=== PATIENT | female | born 1990 | race Caucasian/White ===

== ENCOUNTER 2023-02-08 09:07 | Inpatient (IN) ==
[2023-02-08] MEDS ORDERED: Buffered Lidocaine 1% SYRIN 1 ml INTRADERM ONE (09:28)
[2023-02-08] MEDS ORDERED: Promethazine INJ(RESTRICTED) 25 MG/ML 1 ml VIAL IV PRN (09:28)
[2023-02-08] MEDS ORDERED: Lactated Ringers 1000 ml BAG 1,000 ML IV ONE (09:28)
[2023-02-08] MEDS ORDERED: Nalbuphine 10 MG/ML 1 ML VIAL IV PRN (09:28)
[2023-02-08] MEDS ORDERED: Lactated Ringers 1000 ml BAG 1,000 ML IV SCH (10:00)
[2023-02-08 10:22] LABS: Hematocrit 39.3 % (35-45); Hemoglobin 13.6 g/dL (11.5-14.3); Mean Corpuscular Hemoglobin 33.1 pg (27-33); Mean Corpuscular Hgb Conc 34.7 g/dL (31-36); Mean Corpuscular Volume 95.4 fL (80-97); Mean Platelet Volume 11.5 fL (7.5-11.2); Platelet Count 130 10^3/uL (150-450); Red Blood Count 4.11 10^6/uL (3.63-4.92); Red Cell Distribution Width 13.9 % (12-17); White Blood Count 5.1 10^3/uL (3.8-11.8)
[2023-02-08 10:59] LABS: Albumin 3.1 g/dL (3.2-5.2); Calcium 8.5 mg/dL (8.6-10.3); Potassium 4.6 mmol/L (3.5-5.0); Total Bilirubin 0.5 mg/dL (0.2-1.0)
[2023-02-08 11:05] LABS: Albumin/Globulin Ratio 1.6 (1-3); Creatinine, Serum 0.91 mg/dL (0.51-0.95); Globulin 1.9 g/dL (2-4); Uric Acid 5.3 mg/dL (2.3-6.6); eGFR CKD-EPI 85.4 (>60)
[2023-02-08 11:13] LABS: ABS Lymphocytes 0.9 10^3/uL (1.0-4.8); ABS Monocytes 0.6 10^3/uL (0.0-0.9); ABS Neutrophils 3.5 10^3/uL (1.5-7.6); ABS Nucleated RBC 0.01 10^3/ul; Eosinophil % 0.4 %; Lymphocyte % 18.1 %; Nucleated Red Blood Cells % 0.1 /100 WBC (0.0-0.4)
[2023-02-08 11:25] LABS: Urine TP Concentration 19 mg/dL
[2023-02-08] MEDS ORDERED: Penicillin G Potassium IV 5,000,000 UNITS in NS 0.9% 100 ml BAG 100 ML IVPB ONE (12:13)
[2023-02-08] MEDS ORDERED: Calcium Gluconate 1 GM/10 ML VIAL (in Pyxis) IV PUSH PRN (12:14)
[2023-02-08] MEDS ORDERED: Magnesium Sulfate OB PREMIX 4 GM/100 ML BAG IV ONE (12:15)
[2023-02-08 12:34] LABS: Urine Benzodiazepine Screen None Detected (None Detect); Urine Cannabinoids Screen None Detected (None Detect); Urine Opiates Screen None Detected (None Detect)
[2023-02-08] MEDS ORDERED: Magnesium Sulfate OB PREMIX 40 GM/1,000 ML BAG IVPB SCH (13:00)
[2023-02-08] MEDS: Oxytocin in LR 20,000 MILLI.UNIT/1,000 ML BAG IV SCH ×3 (13:10→23:30)
[2023-02-08] MEDS ORDERED: Labetalol IV 5 MG/ML 20 ml VIAL IV PUSH ONE (14:35)
[2023-02-08 17:02] LABS: Albumin 3.3 g/dL (3.2-5.2); Albumin/Globulin Ratio 1.4 (1-3); Calcium 8.5 mg/dL (8.6-10.3); Creatinine, Serum 0.92 mg/dL (0.51-0.95); Globulin 2.4 g/dL (2-4); Total Bilirubin 0.5 mg/dL (0.2-1.0); Total Protein 5.7 g/dL (6.4-8.9); eGFR CKD-EPI 84.3 (>60)
[2023-02-08] MEDS: Penicillin G Potassium IV 3,000,000 UNITS in NS 0.9% 100 ml BAG 100 ML IVPB SCH ×2 (17:08→21:21)
[2023-02-08 17:17] LABS: ABS Lymphocytes 0.9 10^3/uL (1.0-4.8); ABS Monocytes 0.6 10^3/uL (0.0-0.9); ABS Nucleated RBC 0.01 10^3/ul; Eosinophil % 0.2 %; Hematocrit 42.7 % (35-45); Hemoglobin 14.4 g/dL (11.5-14.3); Lymphocyte % 16.9 %; Mean Corpuscular Hemoglobin 32.5 pg (27-33); Mean Corpuscular Hgb Conc 33.9 g/dL (31-36); Mean Corpuscular Volume 95.9 fL (80-97); Mean Platelet Volume 11.3 fL (7.5-11.2); Nucleated Red Blood Cells % 0.1 /100 WBC (0.0-0.4); Platelet Count 139 10^3/uL (150-450); Red Blood Count 4.45 10^6/uL (3.63-4.92); Red Cell Distribution Width 13.9 % (12-17); White Blood Count 5.6 10^3/uL (3.8-11.8)
[2023-02-08] MEDS ORDERED: fentaNYL 100 mcg/2 ml 50 MCG/ML VIAL ONE ×2 (19:30→19:34)
[2023-02-08] MEDS ORDERED: Carboprost Tromethamine 250 mcg 1 ml VIAL ONE (19:42)
[2023-02-08 22:14] LABS: ABS Lymphocytes 0.4 10^3/uL (1.0-4.8); ABS Monocytes 0.9 10^3/uL (0.0-0.9); ABS Neutrophils 9.7 10^3/uL (1.5-7.6); ABS Nucleated RBC 0.01 10^3/ul; Eosinophil % 0.1 %; Hematocrit 17.6 % (35-45); Hemoglobin 5.7 g/dL (11.5-14.3); Lymphocyte % 3.8 %; Mean Corpuscular Hemoglobin 31.8 pg (27-33); Mean Corpuscular Hgb Conc 32.2 g/dL (31-36); Mean Corpuscular Volume 98.7 fL (80-97); Nucleated Red Blood Cells % 0.1 /100 WBC (0.0-0.4); Platelet Count 70 10^3/uL (150-450); Red Blood Count 1.78 10^6/uL (3.63-4.92); Red Cell Distribution Width 14.6 % (12-17); White Blood Count 11.1 10^3/uL (3.8-11.8)
[2023-02-08 22:34] LABS: Activated Partial Thrombo Time 84.5 seconds (26.0-38.0); INR 2.12 (0.88-1.18)
[2023-02-08 22:36] LABS: ABS Lymphocytes 0.7 10^3/uL (1.0-4.8); ABS Monocytes 1.3 10^3/uL (0.0-0.9); ABS Neutrophils 15.2 10^3/uL (1.5-7.6); ABS Nucleated RBC 0.01 10^3/ul; Hematocrit 27.1 % (35-45); Hemoglobin 9.2 g/dL (11.5-14.3); Lymphocyte % 4.1 %; Mean Corpuscular Hemoglobin 31.5 pg (27-33); Mean Corpuscular Volume 92.6 fL (80-97); Mean Platelet Volume 10.1 fL (7.5-11.2); Nucleated Red Blood Cells % 0.1 /100 WBC (0.0-0.4); Platelet Count 117 10^3/uL (150-450); Red Blood Count 2.93 10^6/uL (3.63-4.92); Red Cell Distribution Width 14.1 % (12-17); White Blood Count 17.2 10^3/uL (3.8-11.8)
[2023-02-08 22:37] LABS: Platelet Count 120 10^3/ul (150-450)
[2023-02-08 22:47] LABS: Platelet Count 70 10^3/ul (150-450)
[2023-02-08 22:48] LABS: Schistocytes ABSENT
[2023-02-08 22:52] LABS: Activated Partial Thrombo Time 30.1 seconds (26.0-38.0); INR 1.03 (0.88-1.18)
[2023-02-08 23:04] LABS: Schistocytes ABSENT
[2023-02-09] MEDS: ceFOXitin 2 GM IVPREMIX 2 GM/50 ML BAG IVPB SCH ×3 (02:57→17:55)
[2023-02-09 04:10] LABS: ABS Lymphocytes 0.7 10^3/uL (1.0-4.8); ABS Neutrophils 9.4 10^3/uL (1.5-7.6); Hematocrit 23.1 % (35-45); Hemoglobin 8.2 g/dL (11.5-14.3); Lymphocyte % 6.6 %; Mean Corpuscular Hemoglobin 32.7 pg (27-33); Mean Corpuscular Hgb Conc 35.4 g/dL (31-36); Mean Corpuscular Volume 92.3 fL (80-97); Mean Platelet Volume 10.4 fL (7.5-11.2); Platelet Count 77 10^3/ul (150-450); Platelet Count 81 10^3/uL (150-450); Red Cell Distribution Width 14.5 % (12-17); White Blood Count 11.2 10^3/uL (3.8-11.8)
[2023-02-09 04:18] LABS: Activated Partial Thrombo Time 28.5 seconds (26.0-38.0); INR 0.99 (0.88-1.18)
[2023-02-09 04:34] LABS: Schistocytes ABSENT
[2023-02-09] MEDS: Oxytocin in LR 20,000 MILLI.UNIT/1,000 ML BAG IV SCH (05:59)
[2023-02-09 08:36] LABS: Activated Partial Thrombo Time 26.8 seconds (26.0-38.0); INR 0.98 (0.88-1.18)
[2023-02-09 08:47] LABS: Creatinine, Serum 0.81 mg/dL (0.51-0.95); Potassium 4.3 mmol/L (3.5-5.0); eGFR CKD-EPI 98.2 (>60)
[2023-02-09 08:52] LABS: ABS Lymphocytes 0.9 10^3/uL (1.0-4.8); ABS Monocytes 1.1 10^3/uL (0.0-0.9); Hematocrit 22.2 % (35-45); Hemoglobin 7.9 g/dL (11.5-14.3); Mean Corpuscular Hemoglobin 32.4 pg (27-33); Mean Corpuscular Hgb Conc 35.6 g/dL (31-36); Mean Corpuscular Volume 91.1 fL (80-97); Mean Platelet Volume 10.5 fL (7.5-11.2); Platelet Count 78 10^3/uL (150-450); Red Blood Count 2.43 10^6/uL (3.63-4.92); Red Cell Distribution Width 14.2 % (12-17)
[2023-02-09 09:16] LABS: Calcium 6.2 mg/dL (8.6-10.3)
[2023-02-09 09:53] LABS: Albumin 2.2 g/dL (3.2-5.2)
[2023-02-09] MEDS ORDERED: Calcium Gluconate 2 GM in NS 0.9% 100 ml BAG 100 ML IV ONE ×2 (10:11→17:55)
[2023-02-09 13:54] LABS: Urine Osmo 123 mOsm/kg (150-1150)
[2023-02-09 13:57] LABS: ABS Lymphocytes 1.1 10^3/uL (1.0-4.8); ABS Neutrophils 5.9 10^3/uL (1.5-7.6); ABS Nucleated RBC 0.01 10^3/ul; Hematocrit 23.4 % (35-45); Hemoglobin 8.5 g/dL (11.5-14.3); Mean Corpuscular Hemoglobin 32.9 pg (27-33); Mean Corpuscular Hgb Conc 36.2 g/dL (31-36); Mean Corpuscular Volume 90.8 fL (80-97); Mean Platelet Volume 10.3 fL (7.5-11.2); Nucleated Red Blood Cells % 0.2 /100 WBC (0.0-0.4); Platelet Count 73 10^3/uL (150-450); Red Blood Count 2.58 10^6/uL (3.63-4.92); Red Cell Distribution Width 14.3 % (12-17)
[2023-02-09 14:10] LABS: Albumin 2.3 g/dL (3.2-5.2); Albumin/Globulin Ratio 1.6 (1-3); Calcium 6.9 mg/dL (8.6-10.3); Creatinine, Serum 0.81 mg/dL (0.51-0.95); Globulin 1.4 g/dL (2-4); Magnesium 3.2 mg/dL (1.9-2.7); Phosphorus 2.9 mg/dL (2.5-5.0); Potassium 4.4 mmol/L (3.5-5.0); Total Bilirubin 0.6 mg/dL (0.2-1.0); Total Protein 3.7 g/dL (6.4-8.9); eGFR CKD-EPI 98.2 (>60)
[2023-02-09 14:35] LABS: Osmolality Serum 250 mOsm/kg (275-295)
[2023-02-09 17:37] LABS: Activated Partial Thrombo Time 25.7 seconds (26.0-38.0); INR 0.96 (0.88-1.18)
[2023-02-09 19:51] LABS: ABS Lymphocytes 1.2 10^3/uL (1.0-4.8); ABS Monocytes 0.9 10^3/uL (0.0-0.9); ABS Neutrophils 4.8 10^3/uL (1.5-7.6); ABS Nucleated RBC 0.01 10^3/ul; Eosinophil % 0.2 %; Hematocrit 21.7 % (35-45); Hemoglobin 7.6 g/dL (11.5-14.3); Lymphocyte % 17.4 %; Mean Corpuscular Hemoglobin 32.4 pg (27-33); Mean Corpuscular Hgb Conc 35.2 g/dL (31-36); Mean Corpuscular Volume 91.8 fL (80-97); Mean Platelet Volume 9.9 fL (7.5-11.2); Nucleated Red Blood Cells % 0.1 /100 WBC (0.0-0.4); Platelet Count 70 10^3/uL (150-450); Red Blood Count 2.36 10^6/uL (3.63-4.92); Red Cell Distribution Width 14.6 % (12-17); White Blood Count 6.9 10^3/uL (3.8-11.8)
[2023-02-09 19:53] LABS: Activated Partial Thrombo Time 25.1 seconds (26.0-38.0); INR 0.95 (0.88-1.18)
[2023-02-09 20:36] LABS: Albumin 2.2 g/dL (3.2-5.2); Albumin/Globulin Ratio 1.8 (1-3); Calcium 7.2 mg/dL (8.6-10.3); Creatinine, Serum 0.9 mg/dL (0.51-0.95); Globulin 1.2 g/dL (2-4); Potassium 4.2 mmol/L (3.5-5.0); Total Bilirubin 0.3 mg/dL (0.2-1.0); Total Protein 3.4 g/dL (6.4-8.9); eGFR CKD-EPI 86.6 (>60)
[2023-02-10 01:40] LABS: Activated Partial Thrombo Time 25.6 seconds (26.0-38.0); INR 0.95 (0.88-1.18)
[2023-02-10] MEDS: ceFOXitin 2 GM IVPREMIX 2 GM/50 ML BAG IVPB SCH (04:33)
[2023-02-10 07:41] LABS: Hematocrit 20.7 % (35-45); Hemoglobin 7.5 g/dL (11.5-14.3); Mean Corpuscular Volume 91.8 fL (80-97); Mean Platelet Volume 9.6 fL (7.5-11.2); Platelet Count 76 10^3/uL (150-450); Red Blood Count 2.26 10^6/uL (3.63-4.92); Red Cell Distribution Width 14.7 % (12-17)
[2023-02-10 07:52] LABS: Albumin 2.2 g/dL (3.2-5.2); Albumin/Globulin Ratio 1.5 (1-3); Calcium 7.5 mg/dL (8.6-10.3); Creatinine, Serum 0.89 mg/dL (0.51-0.95); Globulin 1.5 g/dL (2-4); Magnesium 1.6 mg/dL (1.9-2.7); Potassium 4.3 mmol/L (3.5-5.0); Total Bilirubin 0.3 mg/dL (0.2-1.0); Total Protein 3.7 g/dL (6.4-8.9); eGFR CKD-EPI 87.7 (>60)
[2023-02-10 10:49] LABS: Hematocrit 21.9 % (35-45); Hemoglobin 7.7 g/dL (11.5-14.3); Mean Corpuscular Hemoglobin 32.1 pg (27-33); Mean Corpuscular Hgb Conc 35.3 g/dL (31-36); Mean Platelet Volume 9.5 fL (7.5-11.2); Platelet Count 82 10^3/uL (150-450); Red Cell Distribution Width 15.1 % (12-17); White Blood Count 7.5 10^3/uL (3.8-11.8)
[2023-02-10] MEDS ORDERED: Dibucaine 1% OINT 28.35 GM TUBE PR PRN (11:55)
[2023-02-10] MEDS ORDERED: Witch Hazel PAD JAR TOPICAL PRN (11:55)
[2023-02-10] MEDS ORDERED: Glycerin ADULT 2.4 gm SUPP PR PRN (11:55)
[2023-02-10] MEDS ORDERED: Lactated Ringers 1000 ml BAG 1,000 ML IV SCH (12:00)
[2023-02-11 07:29] LABS: ABS Monocytes 0.6 10^3/uL (0.0-0.9); ABS Neutrophils 4.6 10^3/uL (1.5-7.6); ABS Nucleated RBC 0.01 10^3/ul; Eosinophil % 0.8 %; Hematocrit 20.5 % (35-45); Lymphocyte % 16.2 %; Mean Corpuscular Hemoglobin 32.4 pg (27-33); Mean Corpuscular Hgb Conc 34.3 g/dL (31-36); Mean Corpuscular Volume 94.4 fL (80-97); Mean Platelet Volume 8.8 fL (7.5-11.2); Nucleated Red Blood Cells % 0.1 /100 WBC (0.0-0.4); Platelet Count 102 10^3/uL (150-450); Red Blood Count 2.17 10^6/uL (3.63-4.92); Red Cell Distribution Width 15.2 % (12-17); White Blood Count 6.2 10^3/uL (3.8-11.8)
[2023-02-11] MEDS ORDERED: Iron Sucrose 200 MG in NS 0.9% 100 ml IVPB ONE (10:30)
[2023-02-11 13:48] VITALS: BP 148/92
== END 2023-02-11 16:10 | disposition home or self-care (01) | DRG 541 ==
LOC: MCHOBOUT 09:07 → MCHOB 09:29 → ICU 23:04 → MCHOB 02-10 00:48
PROVIDERS: ADMIT Obstetrics & Gynecology; ATTEND Obstetrics & Gynecology